=== PATIENT | female | born 1980 | race Caucasian/White ===

== ENCOUNTER 2016-11-14 00:38 | Emergency (ER) | payer SELFPAY ==
[2016-11-14] MEDS ORDERED: Acetaminophen TAB* 325 MG PO ONE (01:25)
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
[2016-11-14] MEDS ORDERED: Cyclobenzaprine TAB* 10 MG PO ONE (01:59)
[2016-11-14 02:25] VITALS: BP 124/75
--- NOTE | 2016-11-14 07:35 | RAD ---
HISTORY: Low back pain, trauma COMPARISONS: October 12, 2013 VIEWS: 5 , Frontal, lateral, coned-down lateral sacral, and bilateral oblique views of the lumbar spine. FINDINGS: ALIGNMENT: There is straightening of the lumbar lordosis VERTEBRAL BODIES: There is anterolateral marginal osteophyte formation with sclerotic reactive endplate changes at L4-L5 JOINTS: There is facet hypertrophy change at L4-L5 and L5-S1 INTERVERTEBRAL DISCS: There is mild diffuse loss of intervertebral disc height, most pronounced at L4-L5. SOFT TISSUE: Unremarkable. OTHER: The pelvis is unremarkable. The lung bases are clear. IMPRESSION: 1. STRAIGHTENING OF THE LUMBAR LORDOSIS. 2. DEGENERATIVE DISC DISEASE AND OSTEOARTHRITIS, MOST PRONOUNCED AT L4-L5 AND TO A LESSER EXTENT AT L5-S1
== END 2016-11-14 02:23 | disposition home or self-care (01) ==
LOC: ED 00:38
DX: S39.012A Strain of muscle, fascia and tendon of lower back, initial encounter (principal); D64.9 Anemia, unspecified; I10 Essential (primary) hypertension; V43.52XA Car driver injured in collision with other type car in traffic accident, initial encounter; Y92.488 Other paved roadways as the place of occurrence of the external cause; M51.36 Other intervertebral disc degeneration, lumbar region
CPT/HCPCS: 72110; 99283; A9270-GY

== ENCOUNTER 2016-12-09 17:57 | Emergency (ER) | payer OTHER ==
[2016-12-09 19:35] VITALS: BP 129/65
--- NOTE | 2016-12-09 21:14 | RAD ---
INDICATION: Right lower extremity pain. COMPARISON: Comparison is made with a prior study from December 08, 2014. TECHNIQUE: Multiple real-time, color flow and Doppler tracings of the right lower extremity were obtained. FINDINGS: The common femoral, femoral, profunda femoral and popliteal veins all demonstrate normal compressibility, augmentation with compression and phasic response with respiration. The posterior tibial and peroneal veins demonstrate normal compressibility and augmentation with compression. There is a small Levy's cyst present measuring 1.5 x 2.2 x 0.9 cm. IMPRESSION: 1. NO EVIDENCE FOR DEEP VENOUS THROMBOSIS. 2. SMALL LEVY CYST.
--- NOTE | 2016-12-09 21:47 | ED ---
Lower Extremity - HPI Summary HPI Summary: 36 female presents with complaints of right lower extremity calf pain that began about 7 days ago and has been constant. She is concerned about a DVT which she also had in the past (2 years ago) with similar symptoms. She states the pain is like a burning sensation that gets worse when she stretches her calf or walks up stairs. She denies any difficulty breathing, SOB, chest pain, swelling, redness, numbness/tingling and fever/chills. Denies trauma or recent injury. Is not taking control, has not had any recent long distance travel , prolonged bed rest, recent surgery and does not use tobacco. Tried taking OTC Ibuprofen with some relief yesterday. - History of Current Complaint Chief Complaint: EDExtremityLower Stated Complaint: RT LEG PAIN Time Seen by Provider: 12/09/16 20:37 Hx Obtained From: Patient Hx Last Menstrual Period: 11/11/16, no sexual activity since Mechanism Of Injury: Unknown Onset/Duration: Still Present Severity Initially: Mild Severity Currently: Mild Pain Intensity: 3 Pain Scale Used: 0-10 Numeric Timing: Intermittent Location: Is Diffuse - right posterior LE/calf Character Of Pain: Dull, Aching, Burning Associated Signs And Symptoms: Positive: Swelling, Redness. Negative: Fever Aggravating Factor(s): Stairs Alleviating Factor(s): Rest, OTC Meds - Risk Factors DVT Risk Factors: Prior DVT - Allergies/Home Medications Allergies/Adverse Reactions: Allergies Allergy/AdvReac Type Severity Reaction Status Date / Time Mesalamine [From Asacol] Allergy Severe Hives Verified 11/14/16 00:48 PMH/Surg Hx/FS Hx/Imm Hx Endocrine/Hematology History: Reports: Hx Anemia - ON SUPPLEMENT Denies: Hx Diabetes, Hx Thyroid Disease Cardiovascular History: Reports: Hx Deep Vein Thrombosis, Hx Hypertension - PREECCLAMPSIA- LAST WEEK OF -6 MONTHS AGO Respiratory History: Denies: Hx Asthma, Hx Chronic Obstructive Pulmonary Disease (COPD) GI History: Reports: Hx Gastroesophageal Reflux Disease - NO PROBLEMS AT PRESENT , Hx Ulcer - ULCERATIVE COLITIS History: Reports: Other Problems/Disorders - ulcerative colitis. dr dupree. [facility]. Sensory History: Denies: Hx Contacts or Glasses, Hx Hearing Aid Opthamlomology History: Denies: Hx Contacts or Glasses - Surgical History Surgery Procedure, Year, and Place: ORAL SURGERY- WISDOM TEETH-MD OFFICE Hx Anesthesia Reactions: No Infectious Disease History: No Infectious Disease History: Denies: Hx Hepatitis, Hx Human Immunodeficiency Virus (HIV), Traveled Outside the [place] in Last 30 Days - Family History Known Family History: Positive: None - Social History Alcohol Use: None Substance Use Type: Reports: None Smoking Status (MU): Never Smoked Tobacco Have You Smoked in the Last Year: No Review of Systems Constitutional: Negative Eyes: Negative ENT: Negative Cardiovascular: Negative Respiratory: Negative Gastrointestinal: Negative Positive: Arthralgia, Myalgia - right LE, calf Skin: Negative Neurological: Negative Psychological: Normal All Other Systems Reviewed And Are Negative: Yes Physical Exam Triage Information Reviewed: Yes Vital Signs On Initial Exam: Initial Vitals Temp Pulse Resp BP Pulse Ox 97.9 F 92 16 122/80 98 12/09/16 18:06 12/09/16 18:06 12/09/16 18:06 12/09/16 18:06 12/09/16 18:06 Vital Signs Reviewed: Yes Appearance: Positive: Well-Appearing - sitting in hospital chair comfortably with daughter in hands, No Pain Distress, Well-Nourished Skin: Positive: Warm, Skin Color Reflects Adequate Perfusion - < 2 second b/l, Dry. Negative: Erythema @ - right calf/ LE Head/Face: Positive: Normal Head/Face Inspection Eyes: Positive: Normal, Conjunctiva Clear ENT: Positive: Normal ENT inspection, Hearing grossly normal, Pharynx normal, TMs normal Neck: Positive: Supple, Nontender, No Lymphadenopathy Respiratory/Lung Sounds: Positive: Clear to Auscultation, Breath Sounds Present Cardiovascular: Positive: Normal, RRR, Pulses are Symmetrical in both Upper and Lower Extremities - 2+ pedal pulses b/l. Negative: Leg Edema Left, Leg Edema Right Abdomen Description: Positive: Nontender, No Organomegaly, Soft Bowel Sounds: Positive: Present Musculoskeletal: Positive: Normal, Strength/ROM Intact, Pain @ - right calf with movement, very mild, Adele Sign Right - minimal pain when preformed, stated by patient. Negative: Edema Left, Edema Right Neurological: Positive: Normal, Sensory/Motor Intact, Alert, Oriented to Person Place, Time, CN Intact II-III, Reflexes Intact, Normal Gait Psychiatric: Positive: Normal, Affect/Mood Appropriate Diagnostics - Vital Signs Vital Signs Temp Pulse Resp BP Pulse Ox 12/09/16 19:34 97.7 F 84 18 129/65 99 12/09/16 18:06 97.9 F 92 16 122/80 98 - Laboratory Lab Statement: Any lab studies that have been ordered have been reviewed, and results considered in the medical decision making process. - Ultrasound No standard instances Ultrasound Interpretation: Positive (See Comments) - 1. NO EVIDENCE FOR DEEP VENOUS THROMBOSIS. 2. SMALL LEVY CYST 1.5 x2.2x 0.9 Ultrasound Interpretation Completed By: Radiologist Lower Extremity Course/Dx - Course Course Of Treatment: patient did not want anything for pain at this time as it was very minimal. US obtained and negative for DVT. did show evidence of a small bakers cyst that could be the cause of her discomfort especially with movement. told to follow up with pcp, take ibuprofen at home for discomfort and inflammation and is aware of worsening signs and symptoms. - Diagnoses Differential Diagnosis/HQI/PQRI: Positive: Arthritis, DVT, Sprain, Strain, Tendonitis, Other Provider Diagnoses: Strain of calf muscle, Levy's cyst of knee Discharge - Discharge Plan Condition: Stable Disposition: HOME Patient Education Materials: Muscle Strain (ED), Bakers Cyst (ED) Referrals: Yanely VICTORIA,Luis Juarez [Primary Care Provider] - Additional Instructions: Take OTC Ibuprofen or aleve to help with the pain and inflammation. Heat/Ice and rest. You may want to follow up with your primary care doctor for the Bakers cyst. As we discussed, it is small and may go away on its own. It could be the cause of your symptoms. If symptoms worsen such as swelling, redness, rash, warmth or persist please seek medical attention promptly.
== END 2016-12-09 22:30 | disposition home or self-care (01) ==
LOC: ED 17:57
DX: S86.911A Strain of unspecified muscle(s) and tendon(s) at lower leg level, right leg, initial encounter (principal); D64.9 Anemia, unspecified; Z86.718 Personal history of other venous thrombosis and embolism; M71.21 Synovial cyst of popliteal space [Baker], right knee; X58.XXXA Exposure to other specified factors, initial encounter; Y92.9 Unspecified place or not applicable
CPT/HCPCS: 99282

== ENCOUNTER 2016-12-27 18:17 | Emergency (ER) | payer OTHER ==
[2016-12-27 18:58] VITALS: BP 124/77
--- NOTE | 2016-12-27 20:16 | UC ---
Throat Pain/Nasal Riky HPI - HPI Summary HPI Summary: The patient comes in today for: 1. Sore throat: Onset: Last night. Palliative/provocative: Swallowing and laying down makes it worse. Quality: Ache Region/radiation: Right and left pharynx. Severity: 3/10 Time: Constant. Associated symptoms: Fevers: None found at home. Rhinitis: Not seen. Cough: Present "small." Non-productive. * - History of Current Complaint Chief Complaint: UCRespiratory Stated Complaint: SORE THROAT Time Seen by Provider: 12/27/16 20:06 Hx Last Menstrual Period: 12/23/16 ?: No - Allergies/Home Medications Allergies/Adverse Reactions: Allergies Allergy/AdvReac Type Severity Reaction Status Date / Time Mesalamine [From Asacol] Allergy Severe Hives Verified 11/14/16 00:48 Home Medications: Home Medications [id number] [Nyquil Severe Cold/Flu 5-6.25-10-325 mg/15Ml] 1 PO PRN 12/27/16 [History] PMH/Surg Hx/FS Hx/Imm Hx Previously Healthy: Yes - Ulcerative colitis w/total colectomy. Endocrine History Of: Denies: Diabetes, Thyroid Disease, Hyperthyroidism, Hypothyroidism, Dyslipidemia Cardiovascular History Of: Denies: Cardiac Disorders, Hypertension, Pacemaker/ICD, Myocardial Infarction , Congestive Heart Failure, Atrial Fibrillation, Deep Vein Thrombosis, Bleeding Disorders Respiratory History Of: Denies: COPD, Asthma, Bronchitis, Pneumonia, Pulmonary Embolism GI/ History Of: Denies: Gastroesophageal Reflux, Ulcer, Gastrointestinal Bleed, Gall Bladder Disease, Kidney Stones, Diverticulitis, Renal Disease, Urosepsis Neurological History Of: Denies: TIA, CVA, Dementia, Seizures, Migraine Psychological History Of: Denies: Anxiety, Depression, Bipolar Disorder, Schizophrenia, Post Traumatic Stress Disorder Cancer History Of: Denies: Lung Cancer, Colorectal Cancer, Breast Cancer, Prostate Cancer, Cervical Cancer Other History Of: Negative For: HIV, Hepatitis B, Hepatitis C, Anticoagulant Therapy - Surgical History Surgical History: Yes Surgery Procedure, Year, and Place: ORAL SURGERY- WISDOM TEETH-MD OFFICE Colon surgery with colostomy - Family History Known Family History: Negative: Cardiac Disease, Diabetes - Social History Occupation: Employed Full-time Alcohol Use: None Substance Use Type: None Smoking Status (MU): Never Smoked Tobacco Have You Smoked in the Last Year: No Household Exposure Type: Cigarettes - Immunization History Most Recent Tetanus Shot: unknown Review of Systems Constitutional: Fever Skin: Negative Eyes: Negative ENT: Sore Throat Respiratory: Cough Cardiovascular: Negative Gastrointestinal: Negative Genitourinary: Negative Motor: Negative All Other Systems Reviewed And Are Negative: Yes Physical Exam Triage Information Reviewed: Yes Appearance: Well-Appearing, No Pain Distress, Well-Nourished Vital Signs: Initial Vital Signs Temp 101.7 F 12/27/16 18:52 Pulse 126 12/27/16 18:52 Resp 20 12/27/16 18:52 BP 124/77 12/27/16 18:52 Pulse Ox 97 12/27/16 18:52 Vital Signs Reviewed: Yes Eyes: Positive: Conjunctiva Clear. Negative: Discharge ENT: Positive: Hearing grossly normal. Negative: Pharyngeal erythema, Nasal congestion, TM bulging, TM red, Tonsillar swelling, Tonsillar exudate Dental: Negative: Gross Decay/Caries @, Dental Fracture @ Neck: Positive: Supple, Nontender, No Lymphadenopathy. Negative: Nuchal Rigidity Respiratory: Positive: Lungs clear, No respiratory distress, No accessory muscle use. Negative: Crackles, Wheezing Cardiovascular: Positive: RRR, No Murmur Abdomen Description: Positive: Nontender, No Organomegaly, Soft. Negative: Distended, Guarding Musculoskeletal: Positive: Strength Intact, ROM Intact, No Edema Neurological: Positive: Alert, Muscle Tone Normal Psychological: Positive: Age Appropriate Behavior, Consolable Skin: Negative: rashes, breakdown Throat Pain/Nasal Course/Dx - Course Course Of Treatment: Patient told of a negative strep test. She wants viscous lidocaine. - Differential Dx/Diagnosis Provider Diagnoses: viral pharyngitis Discharge - Discharge Plan Condition: Stable Disposition: HOME Patient Education Materials: Pharyngitis (ED) Referrals: Yanely VICTORIA,Luis Juarez [Primary Care Provider] - 1 Week (Please see your primary care provider in a week. If you get worse, please be seen sooner.)
[2016-12-27] MEDS ORDERED: Acetaminophen TAB* 325 MG PO ONE (20:17)
[2016-12-27] MEDS ORDERED: Lidocaine 2% VISCOUS* 15 ML UDC PO ONE (20:32)
== END 2016-12-27 20:48 | disposition home or self-care (01) ==
LOC: UCEAST 18:17
DX: J02.9 Acute pharyngitis, unspecified (principal); Z77.22 Contact with and (suspected) exposure to environmental tobacco smoke (acute) (chronic)
CPT/HCPCS: 87651; 99212; A9270-GY; G0463

== ENCOUNTER → 2017-01-28 11:40 | Emergency (ER) | payer OTHER ==
--- NOTE | 2017-01-28 14:38 | RAD ---
HISTORY: Pain and edema of the right leg COMPARISONS: None relevant TECHNIQUE: Multiple transverse and longitudinal ultrasound images were obtained of the right lower extremity from the level of the common femoral vein inferiorly through to the infrapopliteal veins using grayscale, color Doppler, and spectral Doppler imaging with and without compression and with augmentation. Comparison images were obtained of the contralateral common femoral vein. FINDINGS: VEINS: The venous system of the right lower extremity is compressible throughout its course, with normal flow on color Doppler imaging and normal response to augmentation on spectral Doppler imaging. SOFT TISSUES: Unremarkable. OTHER FINDINGS: None. IMPRESSION: NO RIGHT LOWER EXTREMITY DEEP VEIN THROMBOSIS
[2017-01-28 15:20] VITALS: BP 130/77
--- NOTE | 2017-01-28 21:27 | ED ---
Lower Extremity - HPI Summary HPI Summary: Pt presents w/ Rt LE pain in calf s/p fx's of foot and sprain to ankle/foot a few weeks ago. She developed pain in calf shortly after this injury - has been ambulating on crutches but starting to bear weight some. Follows w/ ortho and was adivsed she come sooner as she has h/o DVT in this calf. Waited to come today as she finally had a day off. Denies numbness, tingling, weakness, fever, chills, redness, streaking, groin pain, chest pain, SOB, bloody cough. No hormone therapy and does not smoke. No personal h/o CA. - History of Current Complaint Chief Complaint: EDExtremityLower Stated Complaint: RT LEG PAIN Time Seen by Provider: 01/28/17 13:42 Hx Obtained From: Patient Hx Last Menstrual Period: 12/23/16 Pain Intensity: 2 Pain Scale Used: 0-10 Numeric - Allergies/Home Medications Allergies/Adverse Reactions: Allergies Allergy/AdvReac Type Severity Reaction Status Date / Time Mesalamine [From Asacol] Allergy Severe Hives Verified 11/14/16 00:48 PMH/Surg Hx/FS Hx/Imm Hx Previously Healthy: Yes Endocrine/Hematology History: Reports: Hx Anemia - ON SUPPLEMENT Denies: Hx Anticoagulant Therapy, Hx Blood Disorders, Hx Diabetes, Hx Thyroid Disease Cardiovascular History: Reports: Hx Deep Vein Thrombosis - Rt calf Denies: Hx Congestive Heart Failure, Hx Hypertension, Hx Myocardial Infarction, Hx Pacemaker/ICD Respiratory History: Denies: Hx Asthma, Hx Chronic Obstructive Pulmonary Disease (COPD), Hx Lung Cancer, Hx Pneumonia, Hx Pulmonary Embolism GI History: Reports: Hx Gastroesophageal Reflux Disease - NO PROBLEMS AT PRESENT -improves w/ tylenol Denies: Hx Gall Bladder Disease, Hx Gastrointestinal Bleed, Hx Ulcer, Hx Urosepsis History: Reports: Other Problems/Disorders - ulcerative colitis. dr dupree. [facility]. Denies: Hx Kidney Stones, Hx Renal Disease Sensory History: Denies: Hx Contacts or Glasses, Hx Hearing Aid Opthamlomology History: Denies: Hx Contacts or Glasses Neurological History: Denies: Hx Dementia, Hx Migraine, Hx Seizures, Hx Transient Ischemic Attacks (TIA) Psychiatric History: Denies: Hx Anxiety, Hx Depression, Hx Schizophrenia, Hx Bipolar Disorder - Surgical History Surgery Procedure, Year, and Place: ORAL SURGERY- WISDOM TEETH-MD OFFICE Colon surgery with colostomy Hx Anesthesia Reactions: No Infectious Disease History: No Infectious Disease History: Denies: Hx Hepatitis, Hx Human Immunodeficiency Virus (HIV), Traveled Outside the [place] in Last 30 Days - Family History Known Family History: Positive: Other - fam h/o cancer Negative: Cardiac Disease, Diabetes - Social History 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 Lives: With Family Alcohol Use: None Hx Substance Use: No Substance Use Type: Reports: None Hx Tobacco Use: No Smoking Status (MU): Never Smoked Tobacco Have You Smoked in the Last Year: No Review of Systems Negative: Fever, Chills Negative: Chest Pain Negative: Shortness Of Breath, Cough Negative: Vomiting, Nausea Positive: no symptoms reported Musculoskeletal: Other - see HPI Positive: Bruising - foot/ankle Neurological: Negative Negative: Weakness, Paresthesia, Numbness Psychological: Normal All Other Systems Reviewed And Are Negative: Yes Physical Exam Triage Information Reviewed: Yes Vital Signs On Initial Exam: Initial Vitals Temp Pulse Resp BP Pulse Ox 96.7 F 84 16 128/91 98 01/28/17 11:45 01/28/17 11:45 01/28/17 11:45 01/28/17 11:45 01/28/17 11:45 Vital Signs Reviewed: Yes Appearance: Positive: Well-Appearing, No Pain Distress, Obese Skin: Positive: Warm, Dry - ecchymosis over Rt foot and ankle - no calf erythema or streaking Eyes: Positive: Normal, EOMI, Conjunctiva Clear ENT: Positive: Hearing grossly normal, Pharynx normal - mucosa moist Respiratory/Lung Sounds: Positive: Breath Sounds Present Cardiovascular: Positive: Normal, RRR, Pulses are Symmetrical in both Upper and Lower Extremities. Negative: Leg Edema Left, Leg Edema Right - + Adele's sign Musculoskeletal: Positive: Strength/ROM Intact - knee, hip, toes, Limited @ - Rt ankle ROM limited d/t pain Neurological: Positive: Normal, Sensory/Motor Intact, Alert, Oriented to Person Place, Time, CN Intact II-III Psychiatric: Positive: Normal Diagnostics - Vital Signs Vital Signs Temp Pulse Resp BP Pulse Ox 01/28/17 15:19 98.2 F 84 16 130/77 01/28/17 11:48 97.8 F 85 20 128/91 99 01/28/17 11:45 96.7 F 84 16 128/91 98 - Laboratory Lab Statement: Any lab studies that have been ordered have been reviewed, and results considered in the medical decision making process. Lower Extremity Course/Dx - Course Course Of Treatment: No DVT found on U/S - suspect this is calf strain w/ recent ankle/foot injury. Encouraged rest, ice, elevation and tylenol PRN pain - gentle stretches to prevent stiffness. F/u w/ ortho as directed. Reviewed danger s/sx of when to return to ED. - Diagnoses Provider Diagnoses: Strain of calf muscle Discharge - Discharge Plan Condition: Stable Disposition: HOME Patient Education Materials: Muscle Strain (ED) Referrals: Yanely VICTORIA,Luis Juarez [Primary Care Provider] - Additional Instructions: Your ultrasound did not show DVT today - most likely a muscle strain. You may alternate heat and ice with gentle stretches - take ibuprofen alternating with acetaminophen for pain. Follow-up with PCP and orthopedics for ongoing care of musculoskeletal injury here. *if you develop chest pain, shortness of breath, bloody cough, fever, racing heart, redness in leg with streaking, return to ED
== END | disposition home or self-care (01) ==
LOC: ED 11:40
DX: S86.911A Strain of unspecified muscle(s) and tendon(s) at lower leg level, right leg, initial encounter (principal); D64.9 Anemia, unspecified; X58.XXXA Exposure to other specified factors, initial encounter; Y92.9 Unspecified place or not applicable; Z86.718 Personal history of other venous thrombosis and embolism
CPT/HCPCS: 99282

== ENCOUNTER 2017-10-22 10:32 | Emergency (ER) | payer OTHER ==
--- OUTSIDE RECORDS SUMMARY | 2017-10-22 10:37 | XMS REPORT ---
:1980 External Reference #:[id number] Author Organization [facility] Address [address] [address] Phone [phone] Care Team Providers Name Role Phone [facility] Care Team Information Procurement Professional Unavailable Luis Ny PA Primary Care Physician Unavailable Payers Type Date Identification Numbers Payment Provider Subscriber Commercial Effective: Policy Number: [id number] Total Care/Dave Casanova 2012 [facility] PayID: [id number] [address] [address] [place] [address] Problems Description No Information Social History Type Date Description Comments Lives With Family Occupation Childcare ETOH Use Occasionally consumes alcohol Smoking Patient has never smoked Exercise Type/Frequency Does not exercise Allergies, Adverse Reactions, Alerts Date Description Reaction Status Severity Comments 01/20/2017 Asacol active hives Medications Medication Date Status Form Strength Qnty SIG Indications Ordering Provider Tylenol Active Tablets 325mg 2 tablets Unknown 0 every 4 hours as needed pain Ibuprofen Hx Capsules 200mg as needed Unknown 0 Vital Signs Date Vital Result Comment 10/07/2017 Height 65 inches 5'5" Weight 250.00 lb Heart Rate 78 /min BP Systolic 110 mmHg BP Diastolic 70 mmHg Respiratory Rate 18 /min Body Temperature 97.6 F BMI (Body Mass Index) 41.6 kg/m2 03/10/2017 Height 65 inches 5'5" Weight 250.00 lb Respiratory Rate 14 /min Body Temperature 96.6 F Pain Level 1 BMI (Body Mass Index) 41.6 kg/m2 02/03/2017 Height 65 inches 5'5" Weight 250.00 lb Heart Rate 71 /min BP Systolic 104 mmHg BP Diastolic 73 mmHg Body Temperature 97.3 F Pain Level 2 BMI (Body Mass Index) 41.6 kg/m2 01/20/2017 Height 65 inches 5'5" Weight 250.00 lb Heart Rate 76 /min Respiratory Rate 17 /min Body Temperature 99.0 F Pain Level 2 BMI (Body Mass Index) 41.6 kg/m2 Results Description No Information Procedures Description No Information Encounters Type Date Location Provider CPT E/M Dx Office Visit 03/10/2017 [facility], [address]4625 [id number] 11:30a Of Kimberly SERRATO Office Visit 02/03/2017 [facility] 31353 [id number] 1:15p Of Kimberly SERRATO Office Visit 01/20/2017 [facility] 98695 [id number] 1:00p Of Kimberly SERRATO M79.661 S93.601A Plan of Care 10/07/2017 - Niranjan Yang MD, [id number] Parastomal hernia without obstruction or gangreneRecommendations:See Ostomy therapist for fitting of belt.E66.01 Morbid (severe) obesity due to excess caloriesReferral:[facility],Follow up:None needed
[2017-10-22 10:52] VITALS: BP 125/72
--- NOTE | 2017-10-22 11:06 | UC ---
Lower Extremity/Ankle HPI - HPI Summary HPI Summary: Pt presents with left foot pain and bump to lateral left ankle. This has been going on for about a month. Says that she has pain on the plantar aspect of the left midfoot. Worse with ambulation and after a day of work being up and down all day. She tells me that she has a history of blood clots to her right leg about 3 years ago, but this was after a surgery and she had been sedentary for a "few days". Pain is described as an ache and sharp pain at times. She has not taken anything for this pain. Denies fever, chills, SOB, chest pain, abdominal pain, n/v/d/c. - History of Current Complaint Chief Complaint: UCLowerExtremity Stated Complaint: FOOT INJURY Time Seen by Provider: 10/22/17 10:55 Hx Obtained From: Patient Hx Last Menstrual Period: 10/17/17 Onset/Duration: Gradual Onset Severity Initially: Moderate Severity Currently: Moderate Pain Intensity: 6 Pain Scale Used: 0-10 Numeric Aggravating Factor(s): Standing, Ambulation Alleviating Factor(s): Rest Able to Bear Weight: Yes - Allergies/Home Medications Allergies/Adverse Reactions: Allergies Allergy/AdvReac Type Severity Reaction Status Date / Time Mesalamine [From Asacol] Allergy Severe Hives Verified 10/22/17 10:52 Home Medications: Home Medications NK [No Home Medications Reported] 10/22/17 [History Confirmed 10/22/17] PMH/Surg Hx/FS Hx/Imm Hx Previously Healthy: Yes Other History Of: Negative For: HIV, Hepatitis B, Hepatitis C, Anticoagulant Therapy - Surgical History Surgical History: Yes Surgery Procedure, Year, and Place: ORAL SURGERY- WISDOM TEETH-MD OFFICE Colon surgery with colostomy - Family History Known Family History: Positive: Other - fam h/o cancer Negative: Cardiac Disease, Diabetes - Social History Occupation: Employed Full-time Lives: With Family Alcohol Use: None Substance Use Type: None Smoking Status (MU): Never Smoked Tobacco Have You Smoked in the Last Year: No Household Exposure Type: Cigarettes - Immunization History Most Recent Tetanus Shot: unknown Review of Systems Constitutional: Negative Skin: Negative Respiratory: Negative Cardiovascular: Negative Neurovascular: Negative Musculoskeletal: Other: - Pain left foot Neurological: Negative Psychological: Negative All Other Systems Reviewed And Are Negative: Yes Physical Exam Triage Information Reviewed: Yes Appearance: Well-Appearing, No Pain Distress, Obese Vital Signs: Initial Vital Signs Temp 97.7 F 10/22/17 10:47 Pulse 83 10/22/17 10:47 Resp 18 10/22/17 10:47 BP 125/72 10/22/17 10:47 Pulse Ox 99 10/22/17 10:47 Vital Signs Reviewed: Yes Respiratory: Positive: Lungs clear, Normal breath sounds, No respiratory distress, No accessory muscle use Cardiovascular: Positive: RRR, No Murmur, Pulses Normal - Left TP and DP, Brisk Capillary Refill - Left foot and all toes Musculoskeletal: Positive: Strength Intact - Left foot and ankle, ROM Intact - Left foot and ankle, No Edema - Left foot, ankle, and calf, Other: - TTP over left plantar midfoot from the heel to the foot pad. NTTP left ankle. Neurological: Positive: Alert, Other: - Sensations intact left LE and all toes Psychological: Positive: Age Appropriate Behavior Skin: Positive: Other - No ecchymosis, erythema, or skin breakdown.. Negative: rashes Lower Extremity Course/Dx - Course Course Of Treatment: Left foot/ankle: IMPRESSION: NO ACUTE OSSEOUS INJURY TO THE LEFT FOOT OR LEFT ANKLE. I suspect this is plantar fasciitis and have advised that she try a gel heel/shoe insert and CAM boot as much as possible. May try 600mg ibuprofen q6-8hrs prn pain. - Differential Dx/Diagnosis Provider Diagnoses: plantar fasciitis left Discharge - Discharge Plan Condition: Stable Disposition: HOME Patient Education Materials: Plantar Fasciitis Exercises (GEN), Plantar Fasciitis (ED) Referrals: Yanely VICTORIA,Luis Juarez [Primary Care Provider] - Additional Instructions: If you develop a fever, shortness of breath, chest pain, new or worsening symptoms - please call your PCP or go to the ED. 1) Try an [id number] gel heel or shoe insert for 1-2 weeks. If this does not help, please try using the CAM boot daily for 1-2 weeks. 2) May take ibuprofen 600mg every 6-8 hours as needed for pain 3) Please schedule a follow up with your PCP within 1-2 weeks for recheck
--- NOTE | 2017-10-22 11:54 | RAD ---
HISTORY: Pain, bump left lateral ankle COMPARISONS: None VIEWS: 6, Frontal, lateral, and oblique views of the left foot and of the left ankle FINDINGS: BONE DENSITY: Normal. BONES: There is no displaced fracture. JOINTS: There is no arthropathy. ALIGNMENT: There is no dislocation. SOFT TISSUES: Unremarkable. OTHER FINDINGS: None. IMPRESSION: NO ACUTE OSSEOUS INJURY TO THE LEFT FOOT OR LEFT ANKLE. IF SYMPTOMS PERSIST, RECOMMEND REPEAT IMAGING.
== END 2017-10-22 12:15 | disposition home or self-care (01) ==
LOC: UCEAST 10:32
DX: M72.2 Plantar fascial fibromatosis (principal)
CPT/HCPCS: 99212; G0463

== ENCOUNTER 2017-11-11 12:25 | Emergency (ER) | payer OTHER ==
[2017-11-11 15:15] VITALS: BP 127/89
--- NOTE | 2017-11-11 15:24 | UC ---
Back Pain HPI - HPI Summary HPI Summary: 37 yo WF c/oright buttck pain and LBP, x few days, so bad that she cannot function well in her ADLs. Has had similar back pain/spasm episodes in the past but pain not improving with Tylenol and ibuprofen around the clock - History of Current Complaint Chief Complaint: UCBackPain Stated Complaint: BACK PAIN Time Seen by Provider: 11/11/17 15:00 Hx Obtained From: Patient Hx Last Menstrual Period: 10/15/17 Onset/Duration: Sudden Onset Severity Initially: Moderate Pain Intensity: 4 Character: Spasmodic Aggravating Factor(s): Movement, Lifting, Bending, Walking Alleviating Factor(s): Nothing Associated Signs And Symptoms: Positive: Negative. Negative: Weakness, Numbness , Abdominal Pain, Flank Pain, Bowel Incontinence - Risk Factors AAA Risk Factors: Negative - Allergies/Home Medications Allergies/Adverse Reactions: Allergies Allergy/AdvReac Type Severity Reaction Status Date / Time mesalamine Allergy Hives Verified 11/11/17 13:32 PMH/Surg Hx/FS Hx/Imm Hx - Additional Past Medical History Additional PMH: recurrent right buttock and back spasm, abd hernia Previously Healthy: Yes Other History Of: Negative For: HIV, Hepatitis B, Hepatitis C, Anticoagulant Therapy - Surgical History Surgical History: Yes Surgery Procedure, Year, and Place: ORAL SURGERY- WISDOM TEETH-MD OFFICE Colon surgery with colostomy - Family History Known Family History: Positive: Other - fam h/o cancer Negative: Cardiac Disease, Diabetes - Social History Alcohol Use: None Substance Use Type: None Smoking Status (MU): Never Smoked Tobacco Have You Smoked in the Last Year: No Household Exposure Type: Cigarettes - Immunization History Most Recent Tetanus Shot: unknown Review of Systems Constitutional: Negative Skin: Negative Eyes: Negative ENT: Negative Respiratory: Negative Cardiovascular: Negative Gastrointestinal: Negative Genitourinary: Negative Motor: Negative Neurovascular: Negative Musculoskeletal: Myalgia - see HPI, Other: - right buttock and nuscle spasm in LB Neurological: Negative Psychological: Negative All Other Systems Reviewed And Are Negative: Yes Physical Exam Triage Information Reviewed: Yes Appearance: Obese Vital Signs: Initial Vital Signs Temp 36.6 C 11/11/17 12:35 Pulse 75 11/11/17 12:35 Resp 16 11/11/17 12:35 BP 117/77 11/11/17 12:35 Pulse Ox 99 11/11/17 12:35 Eye Exam: Normal ENT Exam: Normal Dental Exam: Normal Neck exam: Normal Neck: Positive: 1 Respiratory Exam: Normal Cardiovascular Exam: Normal Abdominal Exam: Normal Musculoskeletal Exam: Normal Musculoskeletal: Positive: Strength Limited @, ROM Limited @ - right buttock and right LBP and spasm , ROM in ALL directions Neurological Exam: Normal Psychological Exam: Normal Skin Exam: Normal Back Pain Course/Dx - Differential Dx/Diagnosis Provider Diagnoses: Back spasm Discharge - Discharge Plan Condition: Stable Disposition: HOME Prescriptions: tiZANidine TAB* [Zanaflex TAB*] 4 mg PO BEDTIME PRN 5 Days #10 tab PRN Reason: Pain Patient Education Materials: Muscle Spasm (ED) Referrals: Yanely VICTORIA,Luis Juarez [Primary Care Provider] - Additional Instructions: take meds as directed
== END 2017-11-11 15:30 | disposition home or self-care (01) ==
LOC: UCEAST 12:25
DX: M62.830 Muscle spasm of back (principal)
CPT/HCPCS: 99212; G0463

== ENCOUNTER 2018-08-28 13:41 | Emergency (ER) | payer OTHER ==
[2018-08-28 14:06] VITALS: BP 129/80
--- NOTE | 2018-08-28 14:58 | ED ---
Lower Extremity - HPI Summary HPI Summary: 38-year-old female presents with right ankle injury today. States she twisted her right ankle and felt a pop. She states she has previous fractures to the ankle. She is not able to ambulate. No numbness or tingling. No knee injury. No other injury. - History of Current Complaint Chief Complaint: UCLowerExtremity Stated Complaint: ANKLE INJURY Time Seen by Provider: 08/28/18 14:54 Hx Last Menstrual Period: 08/03/18 Pain Intensity: 5 - Allergies/Home Medications Allergies/Adverse Reactions: Allergies Allergy/AdvReac Type Severity Reaction Status Date / Time mesalamine Allergy Hives Verified 08/28/18 14:06 Home Medications: Home Medications NK [No Home Medications Reported] 08/28/18 [History Confirmed 08/28/18] PMH/Surg Hx/FS Hx/Imm Hx Endocrine/Hematology History: Reports: Hx Anemia - ON SUPPLEMENT Denies: Hx Anticoagulant Therapy, Hx Blood Disorders, Hx Diabetes, Hx Thyroid Disease Cardiovascular History: Reports: Hx Deep Vein Thrombosis - Rt calf Denies: Hx Congestive Heart Failure, Hx Hypertension, Hx Myocardial Infarction, Hx Pacemaker/ICD Respiratory History: Denies: Hx Asthma, Hx Chronic Obstructive Pulmonary Disease (COPD), Hx Lung Cancer, Hx Pneumonia, Hx Pulmonary Embolism GI History: Reports: Hx Gastroesophageal Reflux Disease - NO PROBLEMS AT PRESENT -improves w/ tylenol Denies: Hx Gall Bladder Disease, Hx Gastrointestinal Bleed, Hx Ulcer, Hx Urosepsis History: Reports: Other Problems/Disorders - ulcerative colitis. dr dupree. christiano [facility]. Denies: Hx Kidney Stones, Hx Renal Disease Sensory History: Denies: Hx Contacts or Glasses, Hx Hearing Aid Opthamlomology History: Denies: Hx Contacts or Glasses Neurological History: Denies: Hx Dementia, Hx Migraine, Hx Seizures, Hx Transient Ischemic Attacks (TIA) Psychiatric History: Denies: Hx Anxiety, Hx Depression, Hx Schizophrenia, Hx Bipolar Disorder - Surgical History Surgery Procedure, Year, and Place: ORAL SURGERY- WISDOM TEETH-MD OFFICE Colon surgery with colostomy Hx Anesthesia Reactions: No Infectious Disease History: No Infectious Disease History: Denies: Hx Hepatitis, Hx Human Immunodeficiency Virus (HIV), Traveled Outside the [place] in Last 30 Days - Family History Known Family History: Positive: Other - fam h/o cancer Negative: Cardiac Disease, Diabetes - Social History Alcohol Use: None Hx Substance Use: No Substance Use Type: Reports: None Hx Tobacco Use: No Smoking Status (MU): Never Smoked Tobacco Have You Smoked in the Last Year: No Review of Systems Negative: Fever Negative: Chest Pain Negative: Shortness Of Breath Positive: Myalgia - right ankle pain All Other Systems Reviewed And Are Negative: Yes Physical Exam Triage Information Reviewed: Yes Vital Signs On Initial Exam: Initial Vitals Temp Pulse Resp BP Pulse Ox 98.2 F 81 18 129/80 98 08/28/18 14:01 08/28/18 14:01 08/28/18 14:01 08/28/18 14:01 08/28/18 14:01 Vital Signs Reviewed: Yes Appearance: Positive: Well-Appearing Skin: Positive: Warm, Dry Head/Face: Positive: Normal Head/Face Inspection Eyes: Positive: Normal, Conjunctiva Clear ENT: Positive: Pharynx normal Respiratory/Lung Sounds: Positive: Clear to Auscultation, Breath Sounds Present Cardiovascular: Positive: Normal, RRR Musculoskeletal: Positive: Limited @ - right ankle, Edema Right - lateral malleolus, Other - good pulses, tenderness over lateral malleolus, capillary refill<2 secs, nontender knee Neurological: Positive: Normal Psychiatric: Positive: Normal Diagnostics - Vital Signs Vital Signs Temp Pulse Resp BP Pulse Ox 08/28/18 14:01 98.2 F 81 18 129/80 98 - Laboratory Lab Statement: Any lab studies that have been ordered have been reviewed, and results considered in the medical decision making process. - Radiology ankle Radiology Interpretation Completed By: Radiologist Summary of Radiographic Findings: IMPRESSION: Sequela of old injury distal fibula. No recent fracture of the right ankle is. noted. Soft tissue swelling laterally. Lower Extremity Course/Dx - Course Course Of Treatment: 38-year-old female presents with right ankle injury today. States she twisted her right ankle and felt a pop. She states she has previous fractures to the ankle. She is not able to ambulate. No numbness or tingling. No knee injury. No other injury. On exam has edema noted to left malleolus. Neurovascular intact. X-ray shows no acute fracture. will give crutches and gel splint. told to practice rice. patient understand and agrees with plan. - Diagnoses Differential Diagnosis/HQI/PQRI: Positive: Fracture (Closed), Sprain, Strain Provider Diagnoses: Right ankle injury Discharge - Sign-Out/Discharge Documenting (check all that apply): Patient Departure All imaging exams completed and their final reports reviewed: Yes - Discharge Plan Condition: Good Disposition: HOME Patient Education Materials: Ankle Sprain (ED) Referrals: Luis Velasquez [Primary Care Provider] - Additional Instructions: Stay off ankle as much as possible Ice, elevate, keep in KRISTY tyenlol every 6 hours for pain Follow up with primary if no improvement Return to ED if develop or any new or worsening symptoms - Billing Disposition and Condition Condition: GOOD Disposition: Home
== END 2018-08-28 16:00 | disposition home or self-care (01) ==
LOC: UCEAST 13:41
DX: S99.911A Unspecified injury of right ankle, initial encounter (principal); X50.0XXA Overexertion from strenuous movement or load, initial encounter; Y93.9 Activity, unspecified; Z88.8 Allergy status to other drugs, medicaments and biological substances
CPT/HCPCS: 99213; G0463

== ENCOUNTER 2019-09-20 10:20 | Emergency (ER) | payer OTHER ==
[2019-09-20 12:33] VITALS: BP 123/74
--- NOTE | 2019-09-20 12:51 | ED ---
Lower Extremity - HPI Summary HPI Summary: This patient is a 39-year-old otherwise healthy female who presents to the ED with right-sided knee pain. Patient states she slipped and fell, injuring her right knee last evening. Endorses difficulty with ambulation, however continues to ambulate independently. She denies any other injuries. She endorses pain worse with walking, better with rest. Small hematoma to the area. Pt able to flex and extend. - History of Current Complaint Chief Complaint: EDExtremityLower Stated Complaint: RIGHT KNEE INJURY PER PT Time Seen by Provider: 09/20/19 10:42 Hx Obtained From: Patient Hx Last Menstrual Period: 08/03/18 Mechanism Of Injury: Blunt Trauma Onset of Pain: Hours Onset/Duration: Hours Severity Initially: Mild Severity Currently: Mild Pain Intensity: 2 Pain Scale Used: 0-10 Numeric Timing: Constant Location: Is Discrete @ - right knee Associated Signs And Symptoms: Negative: Swelling, Redness, Bruising Aggravating Factor(s): Standing Alleviating Factor(s): Rest Able to Bear Weight: No - Risk Factors Gout Risk Factors: Negative DVT Risk Factors: Negative Septic Arthritis Risk Factor: Negative - Allergies/Home Medications Allergies/Adverse Reactions: Allergies Allergy/AdvReac Type Severity Reaction Status Date / Time mesalamine Allergy Hives Verified 09/20/19 10:26 PMH/Surg Hx/FS Hx/Imm Hx Previously Healthy: Yes Endocrine/Hematology History: Reports: Hx Anemia - ON SUPPLEMENT Denies: Hx Anticoagulant Therapy, Hx Blood Disorders, Hx Diabetes, Hx Thyroid Disease Cardiovascular History: Reports: Hx Deep Vein Thrombosis - Rt calf Denies: Hx Congestive Heart Failure, Hx Hypertension, Hx Myocardial Infarction, Hx Pacemaker/ICD Respiratory History: Denies: Hx Asthma, Hx Chronic Obstructive Pulmonary Disease (COPD), Hx Lung Cancer, Hx Pneumonia, Hx Pulmonary Embolism GI History: Reports: Hx Gastroesophageal Reflux Disease - NO PROBLEMS AT PRESENT -improves w/ tylenol Denies: Hx Gall Bladder Disease, Hx Gastrointestinal Bleed, Hx Ulcer, Hx Urosepsis History: Reports: Other Problems/Disorders - ulcerative colitis. dr dupree. [facility] meds. Denies: Hx Kidney Stones, Hx Renal Disease Sensory History: Denies: Hx Contacts or Glasses, Hx Hearing Aid Opthamlomology History: Denies: Hx Contacts or Glasses Neurological History: Denies: Hx Dementia, Hx Migraine, Hx Seizures, Hx Transient Ischemic Attacks (TIA) Psychiatric History: Denies: Hx Anxiety, Hx Depression, Hx Schizophrenia, Hx Bipolar Disorder - Surgical History Surgery Procedure, Year, and Place: ORAL SURGERY- WISDOM TEETH-MD OFFICE Colon surgery with colostomy Hx Anesthesia Reactions: No - Immunization History Hx Pertussis Vaccination: No Immunizations Up to Date: Yes Infectious Disease History: No Infectious Disease History: Denies: Hx Hepatitis, Hx Human Immunodeficiency Virus (HIV), Traveled Outside the [place] in Last 30 Days - Family History Known Family History: Positive: Other - fam h/o cancer Negative: Cardiac Disease, Diabetes - Social History Occupation: Employed Full-time Lives: With Family Alcohol Use: None Hx Substance Use: No Substance Use Type: Reports: None Hx Tobacco Use: No Smoking Status (MU): Never Smoked Tobacco Have You Smoked in the Last Year: No Review of Systems Negative: Fever, Chills, Fatigue, Skin Diaphoresis Negative: Palpitations, Chest Pain Negative: Shortness Of Breath, Cough Negative: Abdominal Pain Genitourinary: Negative Positive: no symptoms reported, see HPI Negative: Arthralgia, Myalgia Neurological: Negative All Other Systems Reviewed And Are Negative: Yes Physical Exam Triage Information Reviewed: Yes Vital Signs On Initial Exam: Initial Vitals Temp Pulse Resp BP Pulse Ox 98.8 F 82 19 138/72 98 09/20/19 10:22 09/20/19 10:22 09/20/19 10:22 09/20/19 10:22 09/20/19 10:22 Vital Signs Reviewed: Yes Appearance: Positive: Well-Appearing, Well-Nourished Skin: Positive: Warm, Skin Color Reflects Adequate Perfusion Head/Face: Positive: Normal Head/Face Inspection Eyes: Positive: EOMI, VANESSA, Conjunctiva Clear Neck: Positive: Supple, No Lymphadenopathy Respiratory/Lung Sounds: Positive: Clear to Auscultation, Breath Sounds Present Cardiovascular: Positive: RRR, Pulses are Symmetrical in both Upper and Lower Extremities Musculoskeletal: Positive: Pain @ - right knee pain with mild ecchymosis Neurological: Positive: Speech Normal Psychiatric: Positive: Affect/Mood Appropriate Procedures - Sedation Patient Received Moderate/Deep Sedation with Procedure: No Diagnostics - Vital Signs Vital Signs Temp Pulse Resp BP Pulse Ox 09/20/19 12:31 98.3 F 78 16 123/74 98 09/20/19 10:22 98.8 F 82 19 138/72 98 - Laboratory Lab Statement: Any lab studies that have been ordered have been reviewed, and results considered in the medical decision making process. Lower Extremity Course/Dx - Course Course Of Treatment: This patient's evaluated for right-sided knee pain with small hematoma. Patient is a history of DVT and is endorsing pain darkly behind the knee following her fall, stating it is a "strain" after falling. She states the DVT was following a surgery many years ago and currently not on blood thinners. An extension of the right knee as well as to the right hip and ankle intact without difficulty with range of motion. X-ray obtained which shows no obvious injury or fracture. She is dc'd home with knee contusion. - Diagnoses Differential Diagnosis/HQI/PQRI: Positive: Fracture (Closed), Sprain, Strain Provider Diagnoses: Knee contusion Discharge ED - Sign-Out/Discharge Documenting (check all that apply): Patient Departure - Discharge Plan Condition: Stable Disposition: HOME Patient Education Materials: Knee Pain (ED) Referrals: Luis Ny PA [Primary Care Provider] - Additional Instructions: Ice and elevation Ibuprofen 600mg three times daily - Billing Disposition and Condition Condition: STABLE Disposition: Home - Attestation Statements Provider Attestation: I was available for consultation for this patient. I did not evaluate the patient or participate in any medical decision making or disposition decisions unless I am specifically named in the chart as having consulted on the patient. If I have consulted on the patient, please see my own ED note on the patient encounter. Louis Araya MD
== END 2019-09-20 12:29 | disposition home or self-care (01) ==
LOC: ED 10:20
DX: S80.01XA Contusion of right knee, initial encounter (principal); W01.0XXA Fall on same level from slipping, tripping and stumbling without subsequent striking against object, initial encounter; Y92.9 Unspecified place or not applicable; D64.9 Anemia, unspecified; K21.9 Gastro-esophageal reflux disease without esophagitis; Z86.718 Personal history of other venous thrombosis and embolism; Z88.8 Allergy status to other drugs, medicaments and biological substances
CPT/HCPCS: 99282